=== PATIENT | female | born 1945 | race Caucasian/White ===

== ENCOUNTER 2022-03-26 06:00 | Emergency (ER) | payer MEDICARE, BC ==
[2022-03-26] MEDS ORDERED: OXYMETAZOLINE HCL 0.05 % NASAL SPRAY 15ML EACHNOSTRI ONE (07:00)
[2022-03-26 07:14] VITALS: BP 141/67
== END 2022-03-26 07:14 | disposition home or self-care (01) ==
LOC: ER 06:04
DX: R04.0 Epistaxis (principal); E11.9 Type 2 diabetes mellitus without complications; I10 Essential (primary) hypertension; Z90.710 Acquired absence of both cervix and uterus; Z98.890 Other specified postprocedural states
CPT/HCPCS: 30901